=== PATIENT | female | born 1955 | race Caucasian/White ===

== ENCOUNTER 2017-11-10 20:40 | Emergency (ER) | payer BC ==
[~2017-11-10] VITALS: Ht 157.5 cm; Wt 61.2 kg
[2017-11-10 20:51] VITALS: BP_SYST 159
[2017-11-10] MEDS ORDERED: NACL 0.9% 1,000 ML IV ONE (21:06)
[2017-11-10 22:55] LABS: EOSINOPHILS % (AUTO) 0.4 % (0.0-4.0); LYMPHOCYTES # (AUTO) 0.7 K/uL (1.0-5.5); MEAN CORPUSCULAR HEMOGLOBIN 30 pg (27-31); MEAN CORPUSCULAR HGB CONC 34 % (32-36); MONOCYTES # (AUTO) 0.4 K/uL (0.0-1.0); NEUTROPHILS # (AUTO) 6.2 K/uL (1.8-7.7)
[2017-11-10 22:59] LABS: BASOPHILS % (AUTO) 0.4 % (0.0-2.0); HEMATOCRIT 35.7 % (36-48); LYMPHOCYTES % (AUTO) 10.2 % (20.5-51.5); MEAN CORPUSCULAR VOLUME 90 fL (79.0-98.0); MONOCYTES % (AUTO) 6.1 % (1.7-9.3); NEUTROPHILS % (AUTO) 82.9 % (40.0-70.0); PLATELET COUNT (AUTO) 148 K/uL (130-430); RED BLOOD CELL COUNT(AUTO) 3.97 MIL/uL (4.2-6.2); RED CELL DISTRIBUTION WIDTH 11.4 % (9.0-15.0); WHITE BLOOD COUNT (AUTO) 7.3 K/uL (4.8-10.8)
[2017-11-10 23:00] LABS: PROTHROMBIN TIME 9.8 SECS (9.5-12.5)
[2017-11-10] MEDS ORDERED: ONDANSETRON HCL 4 MG/2 ML VIAL IVP ONE (23:00)
[2017-11-10 23:02] LABS: ALBUMIN 3.5 g/dL (3.4-4.8); CALCIUM 8.3 mg/dL (8.4-11.0); CREATININE 0.97 mg/dL (0.55-1.30); POTASSIUM 3.6 mmol/L (3.5-5.1); TOTAL BILIRUBIN 0.3 mg/dL (0.0-1.0)
[2017-11-10 23:55] VITALS: BP_SYST 143
== END 2017-11-10 23:55 | disposition home or self-care (01) ==
LOC: SED 20:40
DX: J40 Bronchitis, not specified as acute or chronic (principal); R51 Headache; R11.2 Nausea with vomiting, unspecified
CPT/HCPCS: 36415; 80053; 82150; 83690; 85025; 85610; 86710; 96360; 99284; J7030

== ENCOUNTER 2019-09-21 19:22 | Emergency (ER) | payer OTHER, BC ==
[~2019-09-21] VITALS: Ht 154.9 cm; Wt 62.1 kg
[2019-09-21 19:34] VITALS: BP_SYST 159
[2019-09-21 21:10] LABS: BASOPHILS # (AUTO) 0.1 K/uL (0.0-0.2); BASOPHILS % (AUTO) 1.2 % (0.0-2.0); EOSINOPHILS # (AUTO) 0.3 K/uL (0.0-0.4); EOSINOPHILS % (AUTO) 3.9 % (0.0-4.0); HEMATOCRIT 36.9 % (36-48); HEMOGLOBIN 12.6 g/dL (12.0-16.0); LYMPHOCYTES # (AUTO) 2.2 K/uL (1.0-5.5); LYMPHOCYTES % (AUTO) 34.2 % (20.5-51.5); MEAN CORPUSCULAR HEMOGLOBIN 31 pg (27-31); MEAN CORPUSCULAR HGB CONC 34 % (32-36); MEAN CORPUSCULAR VOLUME 91 fL (79.0-98.0); MONOCYTES # (AUTO) 0.4 K/uL (0.0-1.0); NEUTROPHILS # (AUTO) 3.6 K/uL (1.8-7.7); NEUTROPHILS % (AUTO) 54.7 % (40.0-70.0); PLATELET COUNT (AUTO) 241 K/uL (130-430); POTASSIUM 3.8 mmol/L (3.5-5.1); RED BLOOD CELL COUNT(AUTO) 4.05 MIL/uL (4.2-6.2); RED CELL DISTRIBUTION WIDTH 13.2 % (9.0-15.0); WHITE BLOOD COUNT (AUTO) 6.6 K/uL (4.8-10.8)
[2019-09-21 21:11] LABS: CALCIUM 8.7 mg/dL (8.4-11.0); CREATININE 1.06 mg/dL (0.55-1.30)
[2019-09-21 21:17] LABS: ALBUMIN 3.8 g/dL (3.4-4.8); TOTAL BILIRUBIN 0.2 mg/dL (0.0-1.0)
--- NOTE | 2019-09-21 22:28 | NUR ---
Patient to ER bed 3 to gown for evaluation. Side rails up. Report given to LORAINE CANO.
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
--- NOTE | 2019-09-21 22:41 | NUR ---
ER Dr. Davalos at bedside examining patient.
[2019-09-21] MEDS ORDERED: MORPHINE 2 MG/ML INJ. SYRINGE IVP ONE (23:15)
--- NOTE | 2019-09-21 23:55 | NUR ---
Pt to ana via [employer] for CT. No distress or discomfort noted.
[2019-09-22] MEDS ORDERED: IOHEXOL 100 ML IV ONE ×2 (00:11→02:29)
--- NOTE | 2019-09-22 00:25 | NUR ---
Per Radiology, was unable to "flush contrast to chest" ER MD made aware. Warm compress applied to pt's LA per MD. Will cont to monitor pt.
[2019-09-22] MEDS ORDERED: MORPHINE 2 MG/ML INJ. SYRINGE ONE (00:57)
[2019-09-22] MEDS ORDERED: MORPHINE 2 MG/ML INJ. SYRINGE IVP ONE (01:30)
--- NOTE | 2019-09-22 01:50 | NUR ---
Pt family upset at this time regarding the wait time for results. ER MD made aware. Dr. Davalos at bedside speaking with pt and family, will cont to monitor.
--- NOTE | 2019-09-22 02:00 | NUR ---
Dr. Davalos discussed with pt the need for repeat CT scan of pelvis, abdomen, and chest. Pt and family agree, will cont to monitor pt.
[2019-09-22] MEDS ORDERED: ONDANSETRON HCL 4 MG/2 ML VIAL IVP ONE (02:15)
[2019-09-22] MEDS ORDERED: IOHEXOL 350 mgI/mL, 150 ML INFUS..BTL IV ONE (02:29)
--- NOTE | 2019-09-22 02:40 | NUR ---
Pt to radiology via gurney. No signs ofa cute distress or discomfort noted.
--- NOTE | 2019-09-22 03:02 | NUR ---
Pt back to ER from Radiology.
--- NOTE | 2019-09-22 03:14 | NUR ---
pT STATES , "i FEEL SO MUCH BETTER." VSS. SHARRI HENNING MADE AWARE.
--- NOTE | 2019-09-22 03:50 | NUR ---
Pt able to ambulate to and from restroom at this time. No signs of acute distress or discomfort noted. Will cont to monitor pt.
--- NOTE | 2019-09-22 04:22 | NUR ---
Dr. Davalos at bedside spekaing with pt and family.
[2019-09-22] MEDS ORDERED: LAMO200T2 PO (04:35)
[2019-09-22] MEDS ORDERED: ALPR1TAB2 PO (04:35)
--- NOTE | 2019-09-22 04:59 | NUR ---
Called [facility] for bed, charge nurse busy at this time and will call back. Will cont to monitor pt.
[2019-09-22] MEDS ORDERED: MORPHINE 2 MG/ML INJ. SYRINGE IVP PRN (05:00)
[2019-09-22] MEDS ORDERED: MORPHINE 4 MG/ML INJ. SYRINGE IVP PRN (05:00)
--- NOTE | 2019-09-22 05:04 | NUR ---
[facility] called back, pt will be a tele hold d/t no staff. Charge nurse made aware, will cont to monitor pt.
[2019-09-22] MEDS ORDERED: NORMAL SALINE 5 ML DISP.SYRIN IVF SCH ×2 (06:00)
[2019-09-22] MEDS ORDERED: LORazepam 2 MG/ML VIAL IVP PRN (06:00)
[2019-09-22] MEDS ORDERED: ONDANSETRON HCL 4 MG/2 ML VIAL IVP PRN (06:00)
--- NOTE | 2019-09-22 06:00 | NUR ---
Pt in bed with eyes open resting comfortably. No signs of acute distress or discomfort noted. Family at beside. Per MD order, will cont to monitor pt.
--- NOTE | 2019-09-22 07:10 | NUR ---
Report given to JEROME Sherwood using SBAR format and pt care was endorsed. No signs of acute distress or discomfort noted.
--- NOTE | 2019-09-22 07:10 | NUR ---
Report received from Mikhail CANO. Pt does not want to be admitted to the hospital. Dr. Davalos to reevaluate the pt. Pt is in stable condition.
--- NOTE | 2019-09-22 07:36 | NUR ---
Patient given written and verbal discharge instructions and verbalizes understanding. ER MD discussed with patient the results and treatment provided. Patient in stable condition. ID arm band removed. Rx of ANABEL DUARTE given. Patient educated on pain management and to follow up with PMD. Pain Scale 0/10. Opportunity for questions provided and answered. Medication side effect fact sheet provided.
[2019-09-22 07:39] VITALS: BP_SYST 128
[2019-09-22] MEDS ORDERED: ALPRAZolam 0.25 MG TABLET PO SCH (09:00)
== END 2019-09-22 07:45 | disposition other institution (70) ==
LOC: SED 19:22 → UNDOADMIN 09-22 04:52 → STU 09-22 04:52 → UNDODISIN 09-22 07:36 → STU 09-22 07:45
DX: S29.011A Strain of muscle and tendon of front wall of thorax, initial encounter (principal); Z88.6 Allergy status to analgesic agent; Z88.5 Allergy status to narcotic agent; Z79.899 Other long term (current) drug therapy; V49.40XA Driver injured in collision with unspecified motor vehicles in traffic accident, initial encounter; Y93.89 Activity, other specified; Y92.89 Other specified places as the place of occurrence of the external cause; Y99.8 Other external cause status
CPT/HCPCS: 36415; 70450; 71046; 71260 ×2; 72125; 74177 ×2; 80053; 84484; 85025; 93005; 96374; 96375; 96376; 99285; J2270; J2405; Q9967 ×2; G0378